=== PATIENT | female | born 1985 | race Two or more races ===

== ENCOUNTER 2019-11-12 13:11 | Emergency (ER) | payer OTHER ==
[2019-11-12 13:22] VITALS: BP 129/84; PULSE 78; TEMP 98.1; BMI 27.2
--- NOTE | 2019-11-12 13:46 | PDOC ---
History of Present Illness - General Chief Complaint: Cold Symptoms Stated Complaint: SORE THROAT/BODY ACHE Time Seen by Provider: 11/12/19 13:23 History Source: Patient Exam Limitations: No Limitations Past History - Past Medical History Allergies/Adverse Reactions: Allergies Allergy/AdvReac Type Severity Reaction Status Date / Time No Known Allergies Allergy Verified 11/12/19 13:19 Home Medications: Ambulatory Orders Acetaminophen [Tylenol .Regular Strength -] 650 mg PO Q3H PRN #0 tablet Asthma: No Cancer: No Cardiac Disorders: No COPD: No Diabetes: No HTN: No Seizures: No Thyroid Disease: No - Reproductive History (#): 2 Para: 1 Therapeutic (s) & number: No Spontaneous : 0 - Psycho Social/Smoking Cessation Hx Smoking History: Never smoked Have you smoked in the past 12 months: No Hx Alcohol Use: No Drug/Substance Use Hx: No Substance Use Type: None Hx Substance Use Treatment: No *Physical Exam - Vital Signs Last Vital Signs Temp Pulse Resp BP Pulse Ox 98.1 F 78 16 129/84 97 11/12/19 13:20 11/12/19 13:20 11/12/19 13:20 11/12/19 13:20 11/12/19 13:20 - Physical Exam General Appearance: No: Apparent Distress HEENT: negative: Pharyngeal Erythema, Tonsillar Exudate, Tonsillar Erythema, Nasal Congestion, Rhinorrhea Respiratory/Chest: positive: Lungs Clear, Normal Breath Sounds. negative: Respiratory Distress Cardiovascular: positive: Regular Rhythm, Regular Rate, S1, S2. negative: Murmur Integumentary: positive: Normal Color Neurologic: positive: Alert Medical Decision Making - Medical Decision Making 34 y/o F with no sig pmh presents with sore throat x 4 days along with subjective fever, body aches, cough, URIBE. Also has very mild diarrhea x 2 days. Denies sob, cp, abd pain, n/v. No antipyretics were given today. Likely viral syndrome 11/12/19 13:41 Discharge - Discharge Information Problems reviewed: Yes Clinical Impression/Diagnosis: Viral URI Condition: Stable Disposition: HOME - Admission No - Additional Discharge Information Prescription Drug Monitoring Program (I-STOP) results: I-STOP not reviewed - Follow up/Referral - Patient Discharge Instructions Patient Printed Discharge Instructions: DI for Viral Upper Respiratory Infection -- Adult Additional Instructions: Thank you for choosing [facility]. It was a pleasure taking care of you. You have viral infection Alternate between Tylenol every 4 and Motrin every 6 hours as needed for fever Do salt water gargles Lemon honey tea may also help with throat Recommend rest and hydration Follow-up with your doctor in 2 days Return to the Emergency Department if your symptoms worsen or persist or have other concerning symptoms. Myriam por elegir el [facility]. Fue un placer cuidar de ti. Tiene dayana infeccin viral Alterne entre Tylenol cada 4 y Motrin cada 6 horas segn sea necesario para la fiebre Hacer grgaras de agua salada El t de miantonieta de sloane luong puede ayudar con la garganta Recomendar descanso e hidratacin. Seguimiento con summers mdico en 2 lo. Regrese al departamento de emergencias si yogesh sntomas empeoran o persisten o si tiene otros sntomas preocupantes. Print Language: PERSIAN - Post Discharge Activity
== END 2019-11-12 13:50 | disposition home or self-care (01) ==
LOC: JERFT 13:11
DX: J06.9 Acute upper respiratory infection, unspecified (principal); B97.89 Other viral agents as the cause of diseases classified elsewhere
CPT/HCPCS: 99281-25

== ENCOUNTER 2023-10-08 11:28 | Emergency (ER) | payer SELFPAY ==
[2023-10-08] MEDS ORDERED: SODIUM CHLORIDE 0.9% 500 ML INFUS.BAG IV ONE (12:01)
[2023-10-08] MEDS ORDERED: ACETAMINOPHEN 1000 MG/100 ML BAG IVPB ONE (12:01)
[2023-10-08] MEDS ORDERED: ACETAMINOPHEN INJECTION 100 ML IVPB ONE (12:24)
[2023-10-08 12:58] LABS: BASO % 0.7 % (0-2.0); EOS % 3.7 % (0-4.5); HEMATOCRIT 35.9 % (32.4-45.2); HEMOGLOBIN 11.9 GM/dL (10.7-15.3); LYMPH % 35.2 % (8-40); MCH 25.6 pg (25.7-33.7); MEAN CELL VOLUME 77.6 fl (80-96); MEAN PLT VOLUME 6.8 fl (7.5-11.1); MONO % 7.2 % (3.8-10.2); NEUT % 53.2 % (42.8-82.8); PLATELET COUNT 355 10^3/uL (134-434); RBC 4.63 M/mm3 (3.60-5.2); RDW 16.5 % (11.6-15.6); WHITE BLOOD COUNT 7.2 K/mm3 (4.0-10.0)
[2023-10-08 13:07] LABS: POTASSIUM 4.3 mmol/L (3.5-5.1)
[2023-10-08 13:10] LABS: ALBUMIN 3.4 g/dl (3.4-5.0); CALCIUM 9.1 mg/dL (8.5-10.1)
[2023-10-08 13:11] LABS: BLOOD UREA NITROGEN 14.4 mg/dL (7-18)
[2023-10-08 13:13] LABS: CREATININE 0.7 mg/dL (0.55-1.3)
[2023-10-08 13:14] LABS: BILIRUBIN,TOTAL 0.2 mg/dL (0.2-1); TOT PROT 7.6 g/dl (6.4-8.2)
[2023-10-08 14:13] LABS: URINE APPEARANCE CLEAR; URINE BILIRUBIN NEGATIVE (NEGATIVE); URINE COLOR YELLOW; URINE GLUCOSE (UA) NEGATIVE (NEGATIVE); URINE KETONE NEGATIVE (NEGATIVE); URINE LEUK ESTERASE 1+ (NEGATIVE); URINE NITRITE NEGATIVE (NEGATIVE); URINE PROTEIN NEGATIVE (NEGATIVE); URINE UROBILINOGEN 0.2 mg/dL (0.2-1.0)
[2023-10-08 14:14] LABS: EPI CELLS 2+ /uL (0-25.1); URINE RBC 30-50 /uL (0-23.9)
[2023-10-08 16:03] VITALS: BP 123/72; PULSE 73; RESP 18; TEMP 98; BMI 29.2
== END 2023-10-08 17:40 | disposition home or self-care (01) ==
LOC: JER 11:28
PROC: 3E033NZ Introduction of Analgesics, Hypnotics, Sedatives into Peripheral Vein, Percutaneous Approach (ICD-10-PCS; principal; 2023-10-08)
DX: R10.32 Left lower quadrant pain (principal); N83.201 Unspecified ovarian cyst, right side; N83.202 Unspecified ovarian cyst, left side
CPT/HCPCS: 36415; 74018-TC-FY; 76856-TC; 80053; 81003; 83690; 84703; 85025; 87086; 99285-25